=== PATIENT | female | born 1990 ===

== ENCOUNTER 2021-05-25 11:17 | Outpatient (CLI) | payer BC, SELFPAY ==
--- NOTE | ~2021-05-25 | US_ITS ---
EXAMINATION: US OB /maternal detail DATE: 05/25/2021 11:55 INDICATION: Encounter for screening, unspecified. TECHNIQUE: Real-time ultrasound of the pelvis was performed. COMPARISON: None. FINDINGS: There is a single living fetus in variable presentation. The placenta is anterior, 3.5 cm from the c ervix. heart rate is 144 beats per minute (bpm). The amniotic fluid volume is subjectively norm al. The following biometric data were obtained: Biparietal diameter (BPD): 4.3 cm; head circumference (HC): 15.9 cm; abdominal circumference (AC): 13 .0 cm; femur length (FL): 2.7 cm. These measurements are concordant. Estimated weight is 242 g +/- 36 g, which correlates with the 49th percentile when 10/23/21 is u sed as estimated date of delivery. As single measurements, these parameters are each equal to the following estimated gestational ages w ith ranges of +/- 2 standard deviations: BPD: 19 weeks 0 days (17 weeks 2 days - 20 weeks 5 days). HC: 18 weeks 5 days (17 weeks 2 days - 20 weeks 2 days). AC: 18 weeks 4 days (16 weeks 4 days - 20 weeks 4 days). FL: 18 weeks 2 days (16 weeks 3 days - 20 weeks 1 days). estimated gestational age based solely on measurements from this exam is 18 weeks 5 days +/- 1 weeks 2 days. The cerebral ventricles, cerebellum, cisterna magna, nuchal fold, lip, and visualized portions of the spine are normal. The heart is normal. The diaphragm, stomach, kidneys, and bladder are normal. Ther e are two umbilical arteries to yield a 3-vessel cord. The cord insertion is normal. IMPRESSION: 1. Single living fetus in variable presentation. 2. Estimated weight is 242 g +/- 36 g, which correlates with the 49th percentile when 10/23/21 is used as estimated date of delivery. 3. Normal anatomic survey. Reviewed, dictated and finalized at location B. IMPRESSION: 1. Single living fetus in variable presentation. 2. Estimated weight is 242 g +/- 36 g, which correlates with the 49th pe rcentile when 10/23/21 is used as estimated date of delivery. 3. Normal anatomic survey.
== END 2021-05-25 11:18 ==
PROVIDERS: Visit Provider Obstetrics & Gynecology Gynecology
DX: Z34.92 Encounter for supervision of normal pregnancy, unspecified, second trimester (principal); Z3A.18 18 weeks gestation of pregnancy
CPT/HCPCS: 76805